=== PATIENT | male | born 1985 | race African-American/Black ===

== ENCOUNTER 2018-09-24 22:28 | Emergency (ER) | payer OTHER ==
[~2018-09-24] VITALS: Ht 188 cm; Wt 104.5 kg
--- NOTE | 2018-09-24 22:35 | NUR ---
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 LEFT HAND IV SITE, B/P-118/86, 96% R/A, HR-80. MONITORS APPLIED, SIDEAILS UP X2, CALL LIGHT WITHIN REACH
[2018-09-24] MEDS ORDERED: methylPREDNISolone SOD SUCC 125 MG/2 ML ONE (22:56)
[2018-09-24 23:00] VITALS: BP 119/71
[2018-09-24] MEDS ORDERED: methylPREDNISolone SOD SUCC 125 MG/2 ML IVPush ONE (23:00)
--- NOTE | 2018-09-24 23:00 | NUR ---
PT MEDICATED PER MAR
[2018-09-24] MEDS ORDERED: FAMOTIDINE 20 MG TABLET ONE (23:39)
[2018-09-25] MEDS ORDERED: FAMOTIDINE 20 MG TABLET PO ONE
== END 2018-09-24 23:51 | disposition home or self-care (01) ==
LOC: ED 23:19
DX: T65.811A Toxic effect of latex, accidental (unintentional), initial encounter (principal); Y92.9 Unspecified place or not applicable
CPT/HCPCS: 96374; 99283; J2930

== ENCOUNTER 2018-10-11 22:44 | Emergency (ER) | payer OTHER ==
[~2018-10-11] VITALS: Ht 190.5 cm; Wt 104.0 kg
--- NOTE | 2018-10-11 22:52 | NUR ---
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 pt also c/o heartburn. pt was here recently for allergic reaction to latex. 12 lead ekg-sr, b/p-186/84, hr-90, 95% r/a. monitors applied, sideraisl up x2, call light wirthin reach
[2018-10-11] MEDS ORDERED: DEXAMETHASONE 4 MG TABLET PO ONE (23:00)
[2018-10-11] MEDS ORDERED: DEXAMETHASONE 4 MG TABLET ONE (23:05)
[2018-10-11 23:24] LABS: MEAN CORPUSCULAR HEMOGLOBIN 30.1 pg (27.5-34.5); MEAN CORPUSCULAR HGB CONC 32.3 g/dL (33.2-36.2); MEAN CORPUSCULAR VOLUME 93.2 fL (81-97); MEAN PLATELET VOLUME 8.5 fL (7.4-10.4); PLATELET COUNT 248 x10^3/uL (130-400); RED BLOOD COUNT 5.26 x10^6/uL (4.38-5.82); RED CELL DISTRIBUTION WIDTH 13.7 % (9.4-14.8)
[2018-10-11 23:26] LABS: ALBUMIN 3.7 g/dL (3.4-5.0); ANION GAP 12 mmol/L (5-15); CALCIUM 8.5 mg/dL (8.5-10.1); CHLORIDE 107 mmol/L (98-107); CREATININE 1.23 mg/dL (0.7-1.3)
[2018-10-11 23:30] LABS: TROPONIN I < 0.015 ng/mL (0.000-0.045)
[2018-10-11 23:38] LABS: MD YES
[2018-10-11 23:42] LABS: <PLATELET ESTIMATE> ADEQUATE; <PLT MORPHOLOGY> NORMAL PLT MORPH; <RBC MORPHOLOGY> NORMAL; EOS#(MANUAL) 0.72 x10^3/uL (0.0-0.4); EOS% (MANUAL) 6 % (1-7); LYMPH#(MANUAL) 4.44 x10^3/uL (1-3.4); LYMPHS% (MANUAL) 37 % (22-44); MONOS#(MANUAL) 0.36 x10^3/uL (0.3-2.7); MONOS% (MANUAL) 3 % (2-9); SEG#(MANUAL) 6.48 x10^3/uL (1.8-6.8); SEGS% (MANUAL) 54 % (42-75)
[2018-10-12 00:17] VITALS: BP 122/70
--- NOTE | 2018-10-12 00:17 | NUR ---
Patient/Caregiver given discharge instructions and they have confirmed that they understand the instructions. Patient ambulatory with steady gait.
== END 2018-10-12 00:19 | disposition home or self-care (01) ==
LOC: ED 23:41
DX: L50.0 Allergic urticaria (principal)
CPT/HCPCS: 36415; 71045; 80048; 82040; 84484; 85025; 93005; 99284